=== PATIENT | female | born 1945 | race American Indian/Alaskan Native ===

== ENCOUNTER 2016-12-11 12:59 | Emergency (ER) | payer MEDICARE ==
[2016-12-11 13:56] LABS: Basophils % (Auto) 0.6 % (0.0-1.8); Eosinophils % (Auto) 0.7 % (0.0-4.3); Hematocrit 50.5 % (30.3-42.9); Mean Corpuscular HGB Conc 34 % (30-34); Mean Corpuscular Hemoglobin 31 pg (28-32); Mean Corpuscular Volume 91 fl (79-97); Platelet Count 335 K/mm3 (140-440); Red Blood Count 5.56 M/mm3 (3.65-5.03); Red Cell Distribution Width 15.3 % (13.2-15.2); White Blood Count 9.4 K/mm3 (4.5-11.0)
[2016-12-11 14:15] LABS: Alanine Aminotransferase 20 units/L (7-56); Albumin 4.1 g/dL (3.9-5); Alkaline Phosphatase 78 units/L (35-129); Anion Gap 23 mmol/L; BUN/Creatinine Ratio 18.33; Blood Urea Nitrogen 11 mg/dL (7-17); Calcium 9.7 mg/dL (8.4-10.2); Carbon Dioxide 21 mmol/L (22-30); Chloride 96.1 mmol/L (98-107); Glucose 113 mg/dL (65-100); Potassium 3.9 mmol/L (3.6-5.0); Sodium 136 mmol/L (137-145); Total Protein 8.4 g/dL (6.3-8.2)
--- NOTE | 2016-12-11 16:27 | Emergency Department Report ---
ED General Adult HPI - General Chief complaint: Altered Mental Status Stated complaint: NOT EATING, DRINKING/REFUSES TO TAKE MEDS Time Seen by Provider: 12/11/16 16:26 Source: patient, old records reviewed Mode of arrival: Wheelchair Limitations: Altered Mental Status - History of Present Illness Initial comments: Apparently this patient was dropped off by her personal care facility. She resides in a halfway. She states that she is aware of thyroid problems. She was not discharged here on 12/08/2016 as the chart indicates. This is her first visit. The patient herself has no complaint whatsoever. She tells me that she would like to get some rest. She cannot identify exactly where she lives. She states that she is ready to go home but she "cannot find my way home ". She is not currently agitated. She has no specific complaint. She is not refusing to eat or drink. -: unknown - Related Data Previous Rx's Medication Instructions Recorded Last Taken Type Quetiapine Fumarate [SEROquel] 50 mg PO QHS PRN #14 tab 12/11/16 Unknown Rx Allergies Allergy/AdvReac Type Severity Reaction Status Date / Time No Known Allergies Allergy Unverified 12/11/16 13:19 ED Review of Systems ROS: Stated complaint: NOT EATING, DRINKING/REFUSES TO TAKE MEDS Other details as noted in HPI Constitutional: denies: chills, fever Eyes: denies: eye pain, eye discharge, vision change ENT: denies: ear pain, throat pain Respiratory: denies: cough, shortness of breath, wheezing Cardiovascular: denies: chest pain, palpitations Endocrine: no symptoms reported Gastrointestinal: denies: abdominal pain, nausea, diarrhea Genitourinary: denies: urgency, dysuria, discharge Musculoskeletal: denies: back pain, joint swelling, arthralgia Skin: denies: rash, lesions Neurological: denies: headache, weakness, paresthesias Psychiatric: denies: anxiety, depression Hematological/Lymphatic: denies: easy bleeding, easy bruising ED Past Medical Hx - Past Medical History Previous Medical History?: Yes Hx Psychiatric Treatment: Yes (UNKNOWN) Hx Dementia: Yes Additional medical history: HYPOKALEMIA, HYPOTHYROIDISM, ACUTE CYSTITIS - Surgical History Additional Surgical History: THYROIDECTOMY - Social History Smoking Status: Former Smoker Substance Use Type: None - Medications Home Medications: Home Medications Medication Instructions Recorded Confirmed Last Taken Type Quetiapine Fumarate [SEROquel] 50 mg PO QHS PRN #14 tab 12/11/16 Unknown Rx ED Physical Exam - General Limitations: No Limitations General appearance: alert, in no apparent distress - Head Head exam: Present: atraumatic, normocephalic - Eye Eye exam: Present: normal appearance, PERRL, EOMI. Absent: scleral icterus - ENT ENT exam: Present: mucous membranes moist - Neck Neck exam: Present: normal inspection. Absent: tenderness, meningismus - Respiratory Respiratory exam: Present: normal lung sounds bilaterally. Absent: respiratory distress - Cardiovascular Cardiovascular Exam: Present: regular rate, normal rhythm. Absent: systolic murmur, diastolic murmur, rubs, gallop - GI/Abdominal GI/Abdominal exam: Present: soft, normal bowel sounds. Absent: distended, tenderness, guarding, rebound - Extremities Exam Extremities exam: Present: normal inspection - Back Exam Back exam: Present: normal inspection - Neurological Exam Neurological exam: Present: alert, oriented X3, CN II-XII intact, normal gait. Absent: motor sensory deficit - Psychiatric Psychiatric exam: Present: normal mood, flat affect - Skin Skin exam: Present: warm, dry, intact, normal color. Absent: rash ED Course Vital Signs 12/11/16 13:11 Temperature 98.4 F Pulse Rate 77 Respiratory 16 Rate Blood Pressure 111/62 O2 Sat by Pulse 100 Oximetry - Reevaluation(s) Reevaluation #1: The patient is coherent. She does appear to have memory deficit. Her presentation is consistent with dementia. She is placed in a personal fdc I believe for the same. I cannot identify an emergency medical condition based on her exam or laboratory workup. 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 She will be referred to a primary care provider and [facility]. She does not meet criteria for hospitalization at this time nor for involuntary confinement in a mental health facility. I have discussed this with our mental health provider. They state that she meets no criteria for mental health hospitalization. 12/11/16 17:24 Reevaluation #2: The patient will be fed and given by mouth fluids. She is perhaps a bit volume depleted. However, this is with an rounds of oral rehydration. 12/11/16 17:26 ED Medical Decision Making - Lab Data Result diagrams: 12/11/16 13:21 12/11/16 13:21 Laboratory Results - last 24 hr 12/11/16 12/11/16 12/11/16 13:21 13:21 13:21 WBC 9.4 RBC 5.56 H Hgb 17.0 H Hct 50.5 H MCV 91 MCH 31 MCHC 34 RDW 15.3 H Plt Count 335 Lymph % (Auto) 34.1 [place] % (Auto) 5.9 Eos % (Auto) 0.7 Baso % (Auto) 0.6 Lymph # 3.2 [place] # 0.6 Eos # 0.1 Baso # 0.1 Seg Neutrophils % 58.7 Seg Neutrophils # 5.5 Sodium 136 L Potassium 3.9 Chloride 96.1 L Carbon Dioxide 21 L Anion Gap 23 BUN 11 Creatinine 0.6 L Estimated GFR > 60 BUN/Creatinine Ratio 18.33 Glucose 113 H Lactic Acid 1.30 Calcium 9.7 Magnesium 2.20 Total Bilirubin 0.90 AST 29 ALT 20 Alkaline Phosphatase 78 Total Protein 8.4 H Albumin 4.1 Albumin/Globulin Ratio 1.0 TSH Salicylates Acetaminophen Plasma/Serum Alcohol 12/11/16 12/11/16 12/11/16 13:21 13:21 13:21 WBC RBC Hgb Hct MCV MCH MCHC RDW Plt Count Lymph % (Auto) [place] % (Auto) Eos % (Auto) Baso % (Auto) Lymph # [place] # Eos # Baso # Seg Neutrophils % Seg Neutrophils # Sodium Potassium Chloride Carbon Dioxide Anion Gap BUN Creatinine Estimated GFR BUN/Creatinine Ratio Glucose Lactic Acid Calcium Magnesium Total Bilirubin AST ALT Alkaline Phosphatase Total Protein Albumin Albumin/Globulin Ratio TSH 98.090 H Salicylates < 0.3 L Acetaminophen < 15.0 Plasma/Serum Alcohol 12/11/16 12/11/16 13:21 15:55 WBC RBC Hgb Hct MCV MCH MCHC RDW Plt Count Lymph % (Auto) [place] % (Auto) Eos % (Auto) Baso % (Auto) Lymph # [place] # Eos # Baso # Seg Neutrophils % Seg Neutrophils # Sodium Potassium Chloride Carbon Dioxide Anion Gap BUN Creatinine Estimated GFR BUN/Creatinine Ratio Glucose Lactic Acid 1.80 Calcium Magnesium Total Bilirubin AST ALT Alkaline Phosphatase Total Protein Albumin Albumin/Globulin Ratio TSH Salicylates Acetaminophen Plasma/Serum Alcohol < 0.01 Critical care attestation.: If time is entered above; I have spent that time in minutes in the direct care of this critically ill patient, excluding procedure time. ED Disposition Clinical Impression: Volume depletion Dementia Qualifiers: Dementia type: unspecified type Dementia behavioral disturbance: without behavioral disturbance Qualified Code(s): F03.90 - Unspecified dementia without behavioral disturbance Hypothyroidism Qualifiers: Hypothyroidism type: unspecified Qualified Code(s): E03.9 - Hypothyroidism, unspecified Disposition: DC-01 TO HOME OR SELFCARE Is pt being admited?: No Does the pt Need Aspirin: No Condition: Stable Instructions: Dementia (ED), Hypothyroidism (ED) Additional Instructions: Increase fluids. Return any acute change or problem. I am referring the patient to a primary care clinic as well as [facility] services who should be of assistance. You may bring her there tomorrow. I have also prescribed something to help her rest at night. Prescriptions: Quetiapine Fumarate [SEROquel] 50 mg PO QHS PRN #14 tab PRN Reason: Insomnia Referrals: PRIMARY CARE, [Referring] - 3-5 Days [facility] [Provider Group] - 3-5 Days [facility] [Outside] - 24 Hours Time of Disposition: 17:27
[2016-12-11] MEDS ORDERED: PEPCID IV ONE (16:31)
[2016-12-11] MEDS ORDERED: BENADRYL IV ONE (16:31)
[2016-12-11] MEDS ORDERED: NACL 0.9% 1000 ML 1,000 ML IV ONE (16:31)
[2016-12-11] MEDS ORDERED: ZOFRAN IV ONE (16:32)
[2016-12-11] MEDS ORDERED: DILAUDID IV ONE (16:32)
[2016-12-11 17:55] LABS: Urine Drugs of Abuse Note Disclamer
[2016-12-11 18:11] LABS: Bilirubin,Urine NEG (Negative); Blood,Urine NEG (Negative); Ketones,Urine TR mg/dL (Negative); Leukocyte Esterase,Urine NEG (Negative); Mucus,Urine FEW /HPF; Nitrite,Urine NEG (Negative)
[2016-12-11 18:19] VITALS: BP 128/72
== END 2016-12-11 18:19 | disposition home or self-care (01) ==
LOC: ED 12:59
DX: F03.90 Unspecified dementia, unspecified severity, without behavioral disturbance, psychotic disturbance, mood disturbance, and anxiety (principal); E03.9 Hypothyroidism, unspecified; E86.9 Volume depletion, unspecified; Z87.891 Personal history of nicotine dependence
CPT/HCPCS: 36415; 80053; 80307; 81001; 82140; 82962; 83735; 84443; 85025; 99284; G0480; 80320